=== PATIENT | male | born 1975 | race Caucasian/White ===

== ENCOUNTER → 2017-06-29 14:12 | Outpatient (CLI) | payer BC, SELFPAY ==
--- NOTE | 2017-06-29 14:17 | XR_ITS ---
XR elbow RT min 3V HISTORY: ITS.REASON: right elbow pain ORDERING PHYSICIAN: Nicolas Gann MD PATIENT AGE: 42 years COMPARISON: None FINDINGS: BONY STRUCTURES: No fracture or dislocation. No lytic or blastic change. Normal mineralization. SOFT TISSUES: Unremarkable. No radio opaque foreign bodies. No displaced fat pad. JOINT SPACE: Well-preserved. No significant arthritic changes evident. IMPRESSION: Negative elbow.
--- NOTE | 2017-06-29 14:17 | XR_ITS ---
XR knee LT 4V HISTORY: ITS.REASON: Left knee pain ORDERING PHYSICIAN: Nicolas Gann MD PATIENT AGE: 42 years COMPARISON: None FINDINGS: No fracture or dislocation. No lytic or blastic change. Normal mineralization. No significant arthritic changes evident. No other significant findings IMPRESSION: Negative left Knee
== END ==
PROVIDERS: PCP Internal Medicine Adolescent Medicine; Visit Provider Orthopaedic Surgery
DX: M25.521 Pain in right elbow (principal); M25.562 Pain in left knee
CPT/HCPCS: 73080; 73564

== ENCOUNTER → 2020-11-12 08:14 | Outpatient (CLI) | payer BC, SELFPAY ==
[2020-11-12 08:53] LABS: Basophils # 0.1 K/mm3 (0-0.2); Basophils % 1.2 % (0.1-2.0); Eosinophils # 0.1 K/mm3 (0.0-0.4); Eosinophils % 2.1 % (0.1-12.0); Hemoglobin 15.3 g/dL (14.1-18.0); Lymphocytes % 33.4 % (10-50); Mean Corpuscular Hemoglobin 29.8 pg (27.0-31.2); Mean Corpuscular Volume 87.7 fl (80-94); Mean Platelet Volume 9.1 fl (7.4-10.4); Monocytes # 0.4 K/mm3 (0.1-1.0); Monocytes % 6.2 % (1.7-9.3); Neutrophils # 3.3 K/mm3 (1.8-7.8); Neutrophils % 57.1 % (37.0-80.0); Platelet Count 196 K/mm3 (142-424); Red Blood Count 5.14 M/mm3 (4.60-6.20); White Blood Count 5.9 K/mm3 (4.8-10.8)
[2020-11-12 09:34] LABS: Erythrocyte Sedimentation Rate 5 mm/hr (0-15)
[2020-11-12 09:39] LABS: Alanine Aminotransferase 47 U/L (12-78); Albumin Level 4.5 g/dl (3.5-5.0); Aspartate Amino Transferase 38 U/L (17-59); Bilirubin,Total 0.6 mg/dl (0.2-1.3); Blood Urea Nitrogen 18 mg/dl (9-20); Calcium 8.9 mg/dl (8.4-10.2); Carbon Dioxide 20 mmol/L (22.0-30.0); Chloride 108 mmol/L (98-107); Estimated Glomerular Filt Rate 90 ml/min (>60); GFR (African American) 109 ML/MIN (>60); Globulin 2.5 g/dL (1.3-3.2); Glucose 99 mg/dl (74-100); Sodium 138 mmol/L (136-145)
[2020-11-12 09:40] LABS: Albumin/Globulin Ratio 1.8 (1.1-1.8); Alkaline Phosphatase 63 U/L (38-126); Chol/HDL Ratio 5.3 (1-3.5); Cholesterol 186 mg/dl (140-200); HDL Cholesterol 35 mg/dl (40-60); Triglycerides 163 mg/dl (30-150); VLDL Cholesterol 33 mg/dL (0-40)
[2020-11-12 09:50] LABS: Direct LDL Cholesterol 115.39 mg/dL (100-129)
== END ==
PROVIDERS: Visit Provider Internal Medicine Adolescent Medicine
DX: Z00.00 Encounter for general adult medical examination without abnormal findings (principal); M12.9 Arthropathy, unspecified
CPT/HCPCS: 36415; 80053; 80061; 85025; 85651

== ENCOUNTER → 2021-01-01 07:29 | Outpatient (CLI) | payer BC, SELFPAY | PROVIDERS: Visit Provider Internal Medicine Gastroenterology | DX: Z01.812 Encounter for preprocedural laboratory examination (principal); Z11.52 Encounter for screening for COVID-19; Z12.11 Encounter for screening for malignant neoplasm of colon | CPT/HCPCS: U0003 ==

== ENCOUNTER 2021-01-04 11:39 | Day surgery (SDC) | payer BC, SELFPAY ==
[2020-12-31 11:54] VITALS: BMI 33.2
[2021-01-04 12:39] VITALS: BP 122/78; PULSE 72; RESP 18; TEMP 36.4; O2SAT 99
[2021-01-04 13:38] VITALS: O2SAT 97
--- NOTE | 2021-01-04 13:56 | P.PCN_ITS ---
[facility] Procedure Note Procedure Note:: Colonoscopy Procedure Report: Colonoscopy Endoscopist: Neo Webb II, MD Referring physician: Vinayak Delatorre M.D. Date of Procedure: January 04, 2021 Equipment: Olympus 190 variable stiffness pediatric colonoscope Sedation: MAC sedation Indication: Mr. Garcia is a 45-year-old gentleman who is here for initial screening colonoscopy. He reports no abdominal pain, weight loss, change in his bowel habits or rectal bleeding. He reports no family history of colon cancer. Procedure: Prior to the procedure, a history and physical exam was performed, and patient's medications and allergies were reviewed. The risks, benefits and alternatives of the sedation and procedure were discussed with the patient. All questions were answered and informed consent was obtained. The patient was brought to the procedure room. Patient identification and proposed procedure were verified by the physician and the nurse. The patient was placed in a left lateral decubitus position and the scope was passed under direct vision. Throughout the procedure, the patient's blood pressure, pulse, and oxygen saturations were monitored continuously. The colonoscopy was accomplished without difficulty. The patient tolerated the procedure well. Findings: On digital rectal examination there was normal rectal tone. There were no external hemorrhoids. The prostate was 2+, smooth, soft, symmetric without nodules. The colonoscope was introduced through the anal canal to the rectum and advanced to the cecum. The ileocecal valve and appendiceal orifice were identified. The scope was advanced a short distance into the ileum which appeared grossly normal. The scope was then withdrawn into the colon. The cecum, ascending, transverse, descending, sigmoid and rectum were grossly normal. There were no mucosal abnormalities identified. Upon retroflexion within the rectum there were grade 1 internal hemorrhoids.The preparation was excellent throughout with [place] Preparation Score of 9. The cecal time was 10 minutes. Impression: 1. Normal colonoscopy with intubation of the terminal ileum Plan: The patient will not require screening/surveillance colonoscopy again for 10 years by ACS guidelines. I would encourage fiber supplementation on a long-term daily maintenance basis.
[2021-01-04 13:58] VITALS: BP 112/84; PULSE 78; RESP 12; TEMP 36.5; O2SAT 100
[2021-01-04 14:08] VITALS: BP 116/72; PULSE 68; RESP 16; O2SAT 96
[2021-01-04 14:18] VITALS: BP 120/84; PULSE 62; RESP 16; O2SAT 97
[2021-01-04 14:28] VITALS: BP 121/90; PULSE 65; RESP 16; TEMP 36.5; O2SAT 97
--- NOTE | 2021-01-04 14:29 | HMH.ANESCL ---
[facility] Anesthesia Checklist - Patient Identification Patient Identification: Arm Band - Structural Data Admitted From: Home Planned Operative Procedure/s: colonoscopy Consent for Planned Operative Procedure(s) Verified: Yes Verified Documents: Surgical Consent, History and Physical - NPO Status Verified Time NPO: 00:00 - Additional verifications Anesthesia Reactions: No - Airway Assessment C-Spine Mobility Assessed: Yes (mp2) TMJ Mobility Assessed: Yes Dentition: Good Dentition - Neurological Assessment Level of Consciousness: Awake, Alert - Anesthesia Plan Anesthesia Risk discussed: Yes Anesthesia Plan: Verified ASA Class: II Anesthesia Type: MAC [facility] History I have reviewed the patient's past medical history: Yes Medical History: Denies:: Cancer, Diabetes Mellitus Type 1, Diabetes Mellitus Type 2, Internal Pacemaker, MRSA, Seizures *Have you ever received a pneumonia vaccine?: No *Have you received a flu vaccine this season?: No Anesthesia experience/problems:: nac Other Surgeries: Yes: Other (Left ankle ORIF. ). No: Pacemaker Amputation: No Fractures: Yes - *Social History Last grade of school completed: High school graduate Smoking Status: Never smoker Alcohol Intake: never Substance Use Type: denies use *Occupational Status:: retired Housing: house *Travel in the last 8 weeks: None Family Hx:: No significant family history
== END 2021-01-04 14:35 | disposition home or self-care (01) ==
LOC: OUTP 11:41
PROVIDERS: PCP Internal Medicine Adolescent Medicine; Visit Provider Internal Medicine Gastroenterology
PROC: 0DJD8ZZ Inspection of Lower Intestinal Tract, Via Natural or Artificial Opening Endoscopic (ICD-10-PCS; CPT 45378; principal; 2021-01-04 13:00)
DX: Z12.11 Encounter for screening for malignant neoplasm of colon (principal); K64.0 First degree hemorrhoids
CPT/HCPCS: 45378

== ENCOUNTER → 2022-08-18 09:25 | Outpatient (CLI) | payer BC, SELFPAY ==
--- NOTE | 2022-08-18 09:29 | XR_ITS ---
FINAL REPORT CLINICAL HISTORY: LT ELBOW PAIN FINDINGS: Left elbow Three views were obtained. There is no acute fracture or dislocation. The joint spaces appear normal. No joint effusion is identified. No soft tissue abnormality is identified. IMPRESSION: No acute process. Reviewed, Interpreted and Dictated by Donny Jurado III, MD Transcribed by Stephanie Rodriguez Authenticated and [facility]
== END ==
PROVIDERS: PCP Nurse Practitioner Family; Visit Provider Nurse Practitioner Family
DX: M25.522 Pain in left elbow (principal)
CPT/HCPCS: 73080

== ENCOUNTER 2022-09-23 18:43 | Emergency (ER) | payer BC, SELFPAY ==
[2022-09-23 18:45] VITALS: BP 140/95; PULSE 90; RESP 16; TEMP 36.5; O2SAT 96; BMI 32.5
--- NOTE | 2022-09-23 21:07 | HMH.EDEYEP ---
Discharge Plan Disposition Patient Disposition: Home, Self-Care Chief Complaint: Eye Problems Prescriptions Prescriptions: No Action No Known Home Medications Referrals Follow up/Referrals: Vinayak Delatorre MD [Primary Care Provider] - See instructions Clinical Impressions Clinical Impression: Corneal FB (foreign body) Instructions Patient Instructions: DI for Corneal Foreign Body-Eye Discharge ED Provider: Sebastián (ED)Julius Eye Problem HPI General Chief complaint: Eye Problems Stated complaint: AO 09/21 FB in R eye Time Seen by Provider: 09/23/22 21:07 Mode of Arrival: Ambulatory Source of Information: Patient and Medical Record Limitations: No Limitations Description of Symptoms (Recalled from ER Triage Doc. by RN): c/o right eye irritation after working on a car a few days ago. PT states that he looked in his eye a few hours ago and seen something black in his eye. History of Present Illness HPI Narrative: fb rt eye from a few days ago chief complaint: foreign body Onset (ago): day(s) Location: right eye Eye Symptoms: foreign body sensation Place: home Mechanism: occurred while hammering/grinding Severity: moderate Treatments Prior to Arrival: none Related Data Patient tetanus UTD: Yes Home Medications Medication Instructions Recorded Confirmed No Known Home Medications 12/31/20 09/13/22 Allergies Allergy/AdvReac Type Severity Reaction Status Date / Time No Known Allergies Allergy Verified 09/13/22 10:33 [facility] Disclaimer: The information contained in this section may have been updated after the patient was seen, as this information can be updated by other users. Medical History Loss of smell Loss of taste Social History Smoking Status: Never smoker second hand exposure: No alcohol intake: never substance use type: denies use current occupational status: retired Travel in the last 8 weeks: None housing: house current occupational exposures/hazards: No caffeine: Yes ROS Obtained: Yes All systems reviewed & no additional complaints except as documented Physical Exam General General appearance: alert Head Head exam: normocephalic Eye Eye exam: Present PERRL, EOMI and other (fb with rust ring in rt cornea at 3 oclock position) ENT ENT exam: Present normal oropharynx Neck Neck exam: Present trachea midline Respiratory Respiratory exam: Absent respiratory distress Cardiovascular Cardiovascular exam: Present regular rate Extremities Exam Extremities exam: Present full ROM Neurological Exam Neurological exam: Present alert, oriented X3 and CN II-XII intact; Absent motor sensory deficit Skin Skin exam: Absent rash Medical Decision Making Medical Records Medical records reviewed: Yes I reviewed the patient's medical records. Mayank Inquiry Pt receiving controlled substance: No Vital Signs: 09/23/22 18:45 Temperature 97.7 F Temperature Source Oral Pulse Rate [Left Radial] 90 Respiratory Rate 16 Blood Pressure [Right Arm] 140/95 H Blood Pressure Mean [Right Arm] 110 Blood Pressure Source [Right Arm] Automatic Cuff Blood Pressure Position [Right Arm] Sitting 02 Sat by Pulse Oximetry 96 Oxygen Delivery Method Room Air Lab Data Lab results reviewed: Yes I reviewed the patient's lab results. Physician Consults Physician Consulted: dr tate Reason -: Pt condition Medical Decision Narrative: has fb rt cornea with rust ring and discussed with dr tate in am Critical Care Time Critical Care Time Critical Care Time: No Attestation: On 09/23/22, the high probability of a clinically significant, sudden or life threatening deterioration of the following system(s) required my full and direct attention, intervention and personal management. The time I documented below is in addition to time spent performing reporte
--- NOTE | 2022-09-23 21:09 | PC.NURSE ---
MD Bib consulted at this time by . Pt to follow up with Leeroy Tellez tomorrow between 9am-12pm
[2022-09-23 21:15] VITALS: BP 135/85; PULSE 89; RESP 18; TEMP 36.6; O2SAT 99
== END 2022-09-23 21:17 | disposition home or self-care (01) ==
PROVIDERS: Emergency Provider Emergency Medicine; PCP Internal Medicine Adolescent Medicine
DX: T15.01XA Foreign body in cornea, right eye, initial encounter (principal)
CPT/HCPCS: 99283; 99284

== ENCOUNTER 2023-07-10 09:40 | Outpatient (CLI) | payer BC, SELFPAY ==
--- NOTE | 2023-07-10 09:44 | US_ITS ---
FINAL REPORT CLINICAL HISTORY: LT INGUINAL PAIN SWELLING X 2 WKS-- DENIES INJ COMPARISON: None FINDINGS: Limited sonographic images were obtained of the left inguinal region. In the area of interest several lymph nodes are identified, likely reactive. There is a probable left inguinal hernia. IMPRESSION: Likely reactive lymph nodes left inguinal region. Probable left inguinal hernia. If indicated, CT could further evaluate. Reviewed, Interpreted and Dictated by Donny Jurado III, MD Transcribed by Nessa Jay Authenticated and [facility]
== END 2023-07-10 23:59 ==
LOC: RAD 09:40
PROVIDERS: PCP Internal Medicine Adolescent Medicine; Visit Provider Nurse Practitioner Family
DX: R19.09 Other intra-abdominal and pelvic swelling, mass and lump (principal)
CPT/HCPCS: 76882